=== PATIENT | male | born 1950 | race Caucasian/White ===

== ENCOUNTER 2018-03-09 13:52 | Emergency (ER) | payer MEDICARE, OTHER ==
[~2018-03-09] VITALS: Ht 180.3 cm; Wt 108.9 kg
--- NOTE | 2018-03-09 13:55 | NUR ---
BLOOD COLLECTED AND LABELED
--- NOTE | 2018-03-09 13:55 | NUR ---
PT BIBA FOR C/O GEN WEAKNESS AND DIAPHORESIS SUDDEN ONSET 1 HR TALENT MANAGER. PT WAS ABOUT TO EAT LUNCH WHEN SYMTOMS STARTED. PT PRESENTS DIAPHORETIC, EYES CLOSED, BUT OPEN WHEN ASKED, PT IS RESPONDING TO ASSESSMENT QUESTIONS QUICKLY AND IN FULL SENTENCES. DENIES ANY PAIN, SOB, N/V OR DIZZINESS. ONLY C/O WEAKNESS. PT PLACED ON ALL MONITORS, DR CLEMENTS AT BEDSIDE TO EVAL. NAD NOTED/STATED OTHERWISE. 20 G IV TO LAC IS RUNNING IVF NS BOLUS.
[2018-03-09 13:58] VITALS: BP 96/47
[2018-03-09] MEDS ORDERED: NACL 0.9% 2,000 ML IV ONE (14:00)
--- NOTE | 2018-03-09 14:04 | NUR ---
CXR AT BEDSIDE
--- NOTE | 2018-03-09 14:19 | NUR ---
PT TRANSFERS TO BEDSIDE COMMODE WITH STEADY GAIT
[2018-03-09 14:26] LABS: BASOPHILS # (AUTO) 0.2 K/uL (0.00-0.22); BASOPHILS % (AUTO) 1.4 % (0.0-2.0); EOSINOPHILS # (AUTO) 0.5 K/uL (0-0.4); EOSINOPHILS % (AUTO) 4.5 % (0.0-4.0); HEMATOCRIT 45.7 % (36-52); HEMOGLOBIN 15.2 g/dL (12.0-18.0); LYMPHOCYTES # (AUTO) 2.9 K/uL (2.0-11.5); LYMPHOCYTES % (AUTO) 26.7 % (20.5-51.1); MEAN CORPUSCULAR HEMOGLOBIN 29 pg (27-31); MEAN CORPUSCULAR HGB CONC 33 g/dL (33-37); MEAN CORPUSCULAR VOLUME 86.2 fL (80-94); MONOCYTES # (AUTO) 0.9 K/uL (0.8-1.0); MONOCYTES % (AUTO) 8.5 % (1.7-9.3); NEUTROPHILS # (AUTO) 6.4 K/uL (1.8-7.7); NEUTROPHILS % (AUTO) 58.9 % (42.2-75.2); PLATELET COUNT (AUTO) 279 K/uL (140-450); RED CELL DISTRIBUTION WIDTH 14.6 % (11.6-13.7); WHITE BLOOD COUNT (AUTO) 10.8 K/uL (4.8-10.8)
[2018-03-09 14:49] LABS: ALBUMIN 3.9 g/dL (3.4-5.0); ANION GAP 18.3 (8-16); ASPARTATE AMINOTRANSFERASE 39 U/L (15-37); CARBON DIOXIDE 22.5 mmol/L (21-32); CHLORIDE 101 mmol/L (98-107); CREATININE 2.2 mg/dL (0.7-1.3); GFR ARICAN-AMERICAN 39 mL/min (>90); GLUCOSE 101 mg/dL (74-106); POTASSIUM 3.8 mmol/L (3.5-5.1); SODIUM SERUM 138 mmol/L (136-145); TOTAL BILIRUBIN 0.6 mg/dL (0.0-1.0); UREA NITROGEN, BLOOD 30 mg/dL (7-18)
--- NOTE | 2018-03-09 14:54 | NUR ---
PT ON CELL PHONE, STATES " I FELL MUCH BETTER AFTER THAT IV." IVF NS BOLUS STILL INFUSING, IV PATNETN AND ASYMPTOMATIC. PT ON ALL MNIOTS, VSS. PENDING LABS
--- NOTE | 2018-03-09 14:56 | NUR ---
PT IS NO LONGER DIAPHORETIC. SKIN IS PWD, INTACT.
--- NOTE | 2018-03-09 15:58 | NUR ---
OK TO EAT PER DR CLEMENTS, LUNCH TRAY ORDERED.
[2018-03-09 16:54] LABS: APPEARANCE,URINE CLEAR (CLEAR); BILIRUBIN,URINE NEGATIVE (NEGATIVE); BLOOD, URINE NEGATIVE (NEGATIVE); COLOR,URINE YELLOW (YELLOW); LEUKOCYTE ESTERASE ,URINE NEGATIVE (NEGATIVE); NITRITE, URINE NEGATIVE (NEGATIVE); PH,URINE 5.5 (5.0-9.0); UGLUCOSE 3+ (NEGATIVE)
--- NOTE | 2018-03-09 16:58 | NUR ---
PT SPEAKING WITH DR CLEMENTS REGARDING LEAVING AMA. PT AGRESS TO STAY IN ER FOR OBSERVATION AND IVF NS FOR ANOTHER [address] CLEMENTS REQUEST.
[2018-03-09] MEDS ORDERED: NACL 0.9% 1,000 ML IV ONE (17:00)
[2018-03-09 17:08] LABS: BARBITURATE, URINE NEG. ng/ml (NEG <=200); BENZODIAZEPINE, URINE NEG. ng/mL (NEG <=200); CANNABINOID, URINE NEG. ng/mL (NEG <=50); COCAINE, URINE NEG. ng/mL (NEG <=300); OPIATE, URINE NEG. ng/mL (NEG <=2000); PHENCYCLIDINE SCREEN,URINE NEG. ng/mL (NEG <=25)
--- NOTE | 2018-03-09 18:05 | NUR ---
DR CLEMENTS UPDATED ON PT CONDITION. PT STILL REQUESTING TO BE DC'D/OR LEAVE AMA.
[2018-03-09 18:27] LABS: ANION GAP 10.2 (8-16); CARBON DIOXIDE 27.2 mmol/L (21-32); CREATININE 1.9 mg/dL (0.7-1.3); POTASSIUM 5.4 mmol/L (3.5-5.1)
[2018-03-09 19:10] VITALS: BP 128/78
--- NOTE | 2018-03-09 19:11 | NUR ---
Patient discharged with v/s stable. Written and verbal after care instructions given and explained. Patient verbalized understanding. Ambulatory with steady gait. All questions addressed prior to discharge. Advised to follow up with PMD.
== END 2018-03-09 19:11 | disposition home or self-care (01) ==
LOC: MED 13:52
DX: E86.0 Dehydration (principal); I95.9 Hypotension, unspecified; I25.10 Atherosclerotic heart disease of native coronary artery without angina pectoris; I51.89 Other ill-defined heart diseases; Z88.1 Allergy status to other antibiotic agents; Z88.8 Allergy status to other drugs, medicaments and biological substances
CPT/HCPCS: 36415; 71045; 80048; 80053; 80305; 81003; 82550; 82553; 83605; 84484; 85025; 87040; 93005; 96360; 96361; 99285; J7030; Q0092